=== PATIENT | male | born 1965 | race Caucasian/White ===

== ENCOUNTER → 2022-06-16 | Outpatient (CLI) | payer OTHER | LOC: RAD 14:49 | DX: M17.11 Unilateral primary osteoarthritis, right knee (principal) ==

== ENCOUNTER → 2023-02-09 | Outpatient (CLI) | payer OTHER | LOC: RAD 14:00 | DX: R05.3 Chronic cough (principal) ==

== ENCOUNTER 2023-09-14 03:51 | Emergency (ER) | payer OTHER ==
[~2023-09-14] VITALS: Ht 175.3 cm; Wt 86.4 kg
[2023-09-14 04:24] LABS: BASO # 0.05 K/mm3 (0.02-0.10); EOS # 0.25 K/mm3 (0.04-0.40); EOS % 3.4 % (0.0-4.0); HEMATOCRIT 51.4 % (42.0-52.0); HEMOGLOBIN 16.9 g/dL (13.5-18.0); LYMPH# 1.93 K/mm3 (1.50-4.00); MEAN CELL VOLUME 83 fl (78-100); MEAN CORPUSCULAR HEMOGLOBIN 27 pg (27-31); MEAN CORPUSCULAR HGB CONC 33 g/dL (33-37); MEAN PLATELET VOLUME 9.2 fl (7.4-10.4); NEU # 4.51 K/mm3 (1.40-6.50); PLATELET COUNT 268 K/mm3 (130-400); RED BLOOD COUNT 6.23 M/mm3 (4.20-5.60); RED CELL DISTRIBUTION WIDTH 12.5 % (11.5-14.5); WHITE BLOOD COUNT 7.3 K/mm3 (4.8-10.8)
[2023-09-14 04:28] LABS: ALBUMIN 4.4 g/dL (3.5-5.0); SODIUM 143 mmol/L (136-145)
[2023-09-14 04:29] LABS: CALCIUM 9.5 mg/dL (8.3-10.5)
[2023-09-14 04:30] LABS: GLUCOSE 139 mg/dL (75-110); TOTAL PROTEIN 7.2 g/dL (6.4-8.3)
[2023-09-14 04:31] LABS: CARBON DIOXIDE 23 mmol/L (22-29)
[2023-09-14 04:32] LABS: TOTAL BILIRUBIN 0.5 mg/dL (0.2-1.2)
[2023-09-14 04:36] LABS: AST-SGOT 18 U/L (5-34)
[2023-09-14 04:37] LABS: ALT/SGPT 19 U/L (0-55)
[2023-09-14 04:43] LABS: TROPONIN-I < 0.030 ng/mL (<0.030)
[2023-09-14 05:17] LABS: URINE APPEARANCE CLOUDY; URINE BILIRUBIN NEGATIVE (NEGATIVE); URINE BLOOD 250 ery/uL (NEGATIVE); URINE COLOR YELLOW; URINE GLUCOSE NEGATIVE (NEGATIVE); URINE KETONE NEGATIVE (NEGATIVE); URINE LEUKOCYTE ESTERASE 1+ (NEGATIVE); URINE NITRATE NEGATIVE (NEGATIVE); URINE PROTEIN(semi-quant) TRACE (NEGATIVE); URINE UROBILINOGEN NORMAL (NORMAL)
[2023-09-14 05:18] LABS: URINE MUCUS PRESENT (NOT PRESENT)
[2023-09-14] MEDS ORDERED: ONDANSETRON HYDR4 MG PO (05:50)
[2023-09-14] MEDS ORDERED: NORCO 325 MG-51 TA1 PO (05:50)
[2023-09-14] MEDS ORDERED: FLOMAX0.4 MG PO (05:50)
[2023-09-14 06:10] VITALS: BP 142/93
== END 2023-09-14 06:10 | disposition home or self-care (01) ==
LOC: ED 03:51
PROVIDERS: Physician Assistant
DX: N13.2 Hydronephrosis with renal and ureteral calculous obstruction (principal); R94.4 Abnormal results of kidney function studies; Z28.310 Unvaccinated for COVID-19
CPT/HCPCS: J1885; J2270; J2405; J3010; J7030

== ENCOUNTER 2023-09-15 02:09 | Emergency (ER) | payer OTHER ==
[~2023-09-15] VITALS: Ht 175.3 cm; Wt 86.4 kg
[~2023-09-15 02:09] MED LIST: FLOMAX0.4 MG PO; NORCO 325 MG-51 TA1 PO; ONDANSETRON HYDR4 MG PO
[2023-09-15 02:39] LABS: ALBUMIN 4.6 g/dL (3.5-5.0); HEMATOCRIT 51.6 % (42.0-52.0); HEMOGLOBIN 17.2 g/dL (13.5-18.0); MEAN CELL VOLUME 82 fl (78-100); MEAN CORPUSCULAR HEMOGLOBIN 27 pg (27-31); MEAN CORPUSCULAR HGB CONC 33 g/dL (33-37); MEAN PLATELET VOLUME 9.6 fl (7.4-10.4); PLATELET COUNT 289 K/mm3 (130-400); RED BLOOD COUNT 6.29 M/mm3 (4.20-5.60); RED CELL DISTRIBUTION WIDTH 12.8 % (11.5-14.5)
[2023-09-15 02:41] LABS: CALCIUM 9.6 mg/dL (8.3-10.5); WHITE BLOOD COUNT 22.7 K/mm3 (4.8-10.8)
[2023-09-15 02:42] LABS: TOTAL PROTEIN 7.7 g/dL (6.4-8.3)
[2023-09-15 02:48] LABS: LYMPHOCYTE 4 % (20-51); MONOCYTE 6 % (3-10); NEUTROPHILS 90 % (42-75)
[2023-09-15 04:37] VITALS: BP 175/102
== END 2023-09-15 04:37 | disposition short-term general hospital (02) ==
LOC: ED 02:09
PROVIDERS: Physician Assistant
DX: N13.2 Hydronephrosis with renal and ureteral calculous obstruction (principal)
CPT/HCPCS: J0696; J1885; J2270; J2405; J3010; J7030

== ENCOUNTER → 2025-03-02 | Outpatient (CLI) | payer OTHER | LOC: RAD 14:55 | DX: Z01.811 Encounter for preprocedural respiratory examination (principal); Z01.810 Encounter for preprocedural cardiovascular examination; I45.9 Conduction disorder, unspecified ==